=== PATIENT | male | born 1950 | race Caucasian/White ===

== ENCOUNTER → 2017-02-17 | Outpatient (CLI) | payer OTHER ==
[~2017-02-17] MED LIST: ADVIL,NUPRIN,M200 MG PO; ASPIR 8181 M1 PO; NITROSTAT0.4 MG SL; PANTOPRAZOLE SO40 MG PO
== END | disposition home or self-care (01) ==
LOC: CDC 11:15
DX: Z01.810 Encounter for preprocedural cardiovascular examination (principal); K40.91 Unilateral inguinal hernia, without obstruction or gangrene, recurrent; R94.31 Abnormal electrocardiogram [ECG] [EKG]
CPT/HCPCS: 93000

== ENCOUNTER 2017-03-02 12:31 | Day surgery (SDC) | payer OTHER ==
[~2017-03-02] VITALS: Ht 175.3 cm; Wt 79.4 kg
[~2017-03-02 12:31] MED LIST changes: +FISH OIL CONCE1 EAC1 PO; +MULTIVITAMIN1 EAC2 PO; +PROBIOTIC1 EAC3 PO; +SAW PALMETTO450 MG PO; +TYLENOL EXTRA500 MG PO
[2017-03-02] MEDS ORDERED: COLACE100 MG PO (18:00)
[2017-03-02] MEDS ORDERED: PERCOCET 5/31 TABLET PO (18:00)
[2017-03-02 20:05] VITALS: BP 134/67; BP 171/81
[2017-03-02 21:05] VITALS: BP 134/67
[2017-03-02 21:55] VITALS: BP 143/80
== END 2017-03-02 21:55 | disposition home or self-care (01) ==
LOC: SDC 12:31
PROC: 0YU64JZ Supplement Left Inguinal Region with Synthetic Substitute, Percutaneous Endoscopic Approach (ICD-10-PCS; principal; 2017-03-02)
DX: K40.90 Unilateral inguinal hernia, without obstruction or gangrene, not specified as recurrent (principal); I10 Essential (primary) hypertension; E78.5 Hyperlipidemia, unspecified; M19.90 Unspecified osteoarthritis, unspecified site; Z88.2 Allergy status to sulfonamides
CPT/HCPCS: C1727; C1781; J0131; J0690; J1100; J1170; J2250; J2405; J2710; J2765; J3010

== ENCOUNTER 2017-10-14 18:06 | Emergency (ER) | payer OTHER ==
[~2017-10-14] VITALS: Ht 175.3 cm; Wt 80.9 kg
[~2017-10-14 18:06] MED LIST changes: +COLACE100 MG PO; +PERCOCET 5/31 TABLET PO
[2017-10-14 19:39] LABS: HEMATOCRIT 40.8 % (38.0-50.0); HEMOGLOBIN 14.1 G/DL (12.5-16.6); MCHC 34.6 G/DL (30.0-36.0); MCV 89.7 FL (86-99); PLATELET COUNT 216 K/uL (156-360); RBC DIS.WIDTH-CV 12.1 % (11.8-14.6); RBC DIS.WIDTH-SD 39.7 % (39-53); RED BLOOD COUNT 4.55 M/uL (4.00-5.50); WHITE BLOOD COUNT 11.6 K/uL (4.1-10.2)
[2017-10-14 19:48] LABS: CHLORIDE 107 mEq/L (99-109); POTASSIUM 3.6 mEq/L (3.7-5.4); SODIUM 140 mEq/L (136-147)
[2017-10-14 19:49] LABS: GLUCOSE 111 mg/dL (70-99)
[2017-10-14 19:53] LABS: GFR ESTIMATE (CALCULATED) > 59 mL/min/ (58.99-99999)
[2017-10-14 19:54] LABS: UREA NITROGEN (BUN) 15 mg/dL (9-23)
[2017-10-14] MEDS ORDERED: FLOMAX0.4 MG PO (20:02)
[2017-10-14 20:15] LABS: APPEARANCE CLEAR ((CLEAR)); BILIRUBIN NEGATIVE; BLOOD NEGATIVE; COLOR COLORLESS ((YELLOW)); GLUCOSE (STRIP) NEGATIVE; KETONES 5; LEUKOCYTES NEGATIVE; NITRITE NEGATIVE; PROTEIN (STRIP) NEGATIVE; SPECIFIC GRAVITY 1.006 (1.000-1.030); UCUL ADDED? NO; UROBILINOGEN 0.2 MG/DL (0.2-1.0)
[2017-10-14 22:45] VITALS: BP 164/105
== END 2017-10-14 22:54 | disposition home or self-care (01) ==
LOC: EME 18:06
PROVIDERS: Physician Assistant
PROC: 0T9B70Z Drainage of Bladder with Drainage Device, Via Natural or Artificial Opening (ICD-10-PCS; principal; 2017-10-14)
DX: R33.9 Retention of urine, unspecified (principal); K59.00 Constipation, unspecified; I10 Essential (primary) hypertension; Z87.442 Personal history of urinary calculi
CPT/HCPCS: 74176; 80048; 81003; 85027; 99281; 99284